=== PATIENT | male | born 1945 | race Caucasian/White ===

== ENCOUNTER 2024-05-03 16:36 | Emergency (ER) | payer OTHER ==
[~2024-05-03] VITALS: Ht 165.1 cm; Wt 86.0 kg
[2024-05-03 16:40] VITALS: O2SAT 97
[2024-05-03 18:24] LABS: CLARITY URINE CLEAR (CLEAR); COLOR URINE YELLOW (YELLOW); GLUCOSE URINE NEGATIVE (NEGATIVE); KETONES URINE NEGATIVE (NEGATIVE); LEUKOCYTE ESTERASE URINE NEGATIVE (NEGATIVE); NITRITE URINE NEGATIVE (NEGATIVE); OCCULT BLOOD URINE NEGATIVE (NEGATIVE); PH URINE 5.5 (4.5-8.0); PROTEIN URINE 1+ (NEGATIVE); SPECIFIC GRAVITY URINE 1.017 (1.005-1.030); UROBILINOGEN URINE 0.2 E.U./dL (0.2-1.0)
[2024-05-03 18:40] LABS: BACTERIA URINE NONE SEEN; RBC URINE 0-2 /hpf (0-2); SQUAMOUS EPITHELIAL CELL URINE 1+ /lpf (RARE/1+); WBC URINE 0-2 /hpf (0-2)
[2024-05-03 19:22] LABS: BASOPHILS % 0.3 % (0.0-2.0); EOSINOPHILS % 2.2 % (0.0-5.0); HEMATOCRIT. 43.9 % (42.0-52.0); LYMPHOCYTES % 18.8 % (20.0-50.0); MEAN CORPUSCULAR HEMOGLOBIN 30.9 pg (28.0-32.0); MEAN CORPUSCULAR HGB CONC 34.2 g/dL (31.0-37.0); MEAN CORPUSCULAR VOLUME 90.4 fL (80.0-94.0); MONOCYTES % 9.5 % (2.0-8.0); NEUTROPHILS % 69.2 % (40.0-76.0); PLATELET 274 x1000/uL (130-400); RED BLOOD CELL COUNT 4.86 mill/uL (4.7-6.1); RED CELL DISTRIBUTION WIDTH 13.7 % (11.6-14.6)
[2024-05-03 19:27] LABS: CHLORIDE 108 mEq/L (98-107); SODIUM 139 mEq/L (136-145)
[2024-05-03 19:28] LABS: CALCIUM 9.5 mg/dL (8.7-10.4); CARBON DIOXIDE 24 mEq/L (21-32)
[2024-05-03 19:33] LABS: CREATININE 1.1 mg/dL (0.6-1.3); GLUCOSE 109 mg/dL (70-105); UREA NITROGEN BLOOD 15 mg/dL (9-23)
[2024-05-03 19:35] LABS: TROPONIN I HIGH SENSITIVITY < 4 ng/L (3.0-53)
[2024-05-03] MEDS ORDERED: MECL-299 MT (20:07)
[2024-05-03 20:30] VITALS: BP 167/87; PULSE 73; RESP 18; TEMP 36.89184; O2SAT 95
== END 2024-05-03 20:30 | disposition home or self-care (01) ==
LOC: ER 16:36
DX: R42 Dizziness and giddiness (principal)
CPT/HCPCS: 36415; 71045; 80048; 81003; 84484; 85025; 93005; 99285